=== PATIENT | female | born 1945 | race African-American/Black ===

== ENCOUNTER 2017-10-11 20:19 | Emergency (ER) | payer MEDICARE | END 2017-10-11 22:52 | disposition home or self-care (01) | LOC: D.ER 20:19 | DX: S93.402A Sprain of unspecified ligament of left ankle, initial encounter (principal); W01.0XXA Fall on same level from slipping, tripping and stumbling without subsequent striking against object, initial encounter; Y93.89 Activity, other specified; Y92.019 Unspecified place in single-family (private) house as the place of occurrence of the external cause; I10 Essential (primary) hypertension ==

== ENCOUNTER → 2017-10-28 09:47 | Outpatient (CLI) | payer MEDICARE, OTHER | END | disposition home or self-care (01) | LOC: D.MRI 09:47 | DX: M25.572 Pain in left ankle and joints of left foot (principal) ==

== ENCOUNTER 2020-04-11 15:00 | Outpatient (CLI) | payer MEDICARE, OTHER | END 2020-04-11 16:00 | disposition home or self-care (01) | LOC: D.MAMMO 15:00 | PROVIDERS: ATTEND Surgery | DX: N63.11 Unspecified lump in the right breast, upper outer quadrant (principal) ==

== ENCOUNTER → 2020-04-24 09:44 | Outpatient (CLI) | payer MEDICARE, OTHER | END | disposition home or self-care (01) | LOC: D.US 04-19 09:00 | PROVIDERS: ATTEND Surgery | DX: N63.11 Unspecified lump in the right breast, upper outer quadrant (principal) ==

== ENCOUNTER 2020-05-17 05:17 | Day surgery (SDC) | payer MEDICARE, OTHER ==
[~2020-05-17] VITALS: Ht 170.2 cm; Wt 59.1 kg
[~2020-05-17 05:17] MED LIST: AMBIEN5 MG PO; BENICAR40 MG PO; HYDROXYCHLOROQ200 MG PO; NORVASC10 MG PO; SALAGEN5 MG PO; vitamin d PO
[2020-05-17 06:08] LABS: ANION GAP 13.7 mmol/L (8-16); CALCIUM 8.4 mg/dL (8.5-10.1); CARBON DIOXIDE 23.8 mmol/L (21.0-32.0); CREATININE - SERUM 1.7 mg/dL (0.6-1.3); POTASSIUM - SERUM 4.5 mmol/L (3.5-5.1)
[2020-05-17 06:16] LABS: APTT 26.7 SECONDS (22.8-39.4); INR 1.03 (0.85-1.17); PROTIME 13.5 SECONDS (11.6-15.0)
[2020-05-17 06:55] VITALS: BP 152/83; BMI 20.4
[2020-05-17 06:59] LABS: HEMATOCRIT 24.9 % (36.0-48.0); HEMOGLOBIN 8.2 g/dL (12-16); LYMPHOCYTES 16.9 % (15-50); MCH 29.8 pg (26.0-34.0); MCHC 32.9 g/dL (31.0-37.0); MCV 90.5 fL (80.0-100.0); MEAN PLATELET VOLUME 8.4 fL (7.4-10.4); NEUTROPHILS 68.3 % (40-80); PLATELET COUNT 577 10x3/uL (130-400); RBC 2.75 10x6/uL (4.00-5.40); WBC 8.9 10x3/uL (4.8-10.8)
--- NOTE | 2020-05-17 08:35 | NUR ---
Patient scheduled for a Lymphoscintigrapy of the Right Breast. Consent was obtained. Patient arrived to the nuclear medicine room at 0800 and was positioned supine on the imaging table. Dr. Tracy entered the room and a time out was done at 0810. Regions of intrest were cleaned. 546uCi Tc-99m Tilmanocept (LymphProteros biostructures) was injected subcutaneously in the right breast at four different sites. Imaging followed.
[2020-05-17 12:29] VITALS: BP 144/75
[2020-05-17 16:01] VITALS: BP 124/61
[2020-05-17 16:05] VITALS: BP 125/71; Ht 170.2 cm; Wt 59.1 kg
[2020-05-17 17:38] VITALS: BP 114/69
[2020-05-17 20:00] VITALS: BP 136/77
--- NOTE | 2020-05-17 23:59 | NUR ---
PT RESTING IN BED. EYES CLOSED. NO SIGNS OF DISTRESS. BREATHING EVEN AND UNLABORED. IV SITE LT WRIST. DRESSING CLEAN DRY AND INTACT. NO SIGNS OF INFECTION OR INFULTRATION. LUNG SOUNDS CLEAR. DRESSING ON CHEST CLEAN DRY AND INTACT. SUNIL DAINS X2. BOWEL SOUNDS ACTIVE. SKIN CLEAN DRY AND INTACT. NO LOWER LEG SWELLING PRESENT. WILL CONTINUE PLAN OF CARE. CALL LIGHT IN REACH. BED LOWERED AND LOCKED. BED RAILS UPX1.
--- NOTE | 2020-05-18 03:56 | NUR ---
I have reviewed this patient and I concur with the Shift Assessment completed by the Licensed Practical Nurse today this shift.
[2020-05-18 04:00] VITALS: BP 139/74
[2020-05-18 05:36] LABS: ANION GAP 11.2 mmol/L (8-16); CALCIUM 7.9 mg/dL (8.5-10.1); CARBON DIOXIDE 23.8 mmol/L (21.0-32.0); CREATININE - SERUM 1.9 mg/dL (0.6-1.3)
[2020-05-18 07:52] LABS: HEMATOCRIT 21.5 % (36.0-48.0); LYMPHOCYTES 12.4 % (15-50); MCH 29.7 pg (26.0-34.0); MCHC 32.6 g/dL (31.0-37.0); MCV 91.1 fL (80.0-100.0); MEAN PLATELET VOLUME 8.5 fL (7.4-10.4); NEUTROPHILS 75.3 % (40-80); PLATELET COUNT 495 10x3/uL (130-400); RBC 2.36 10x6/uL (4.00-5.40); RDW 15.3 % (11.5-14.5); WBC 10.4 10x3/uL (4.8-10.8)
--- NOTE | 2020-05-18 09:07 | NUR ---
SHE IS SETTING UP ON THE SIDE OF BED. NO C/O PAIN. LUCILLE DRESSING AROUND HER BREAST AREA, 2 SUNIL'S ON THE RIGHT SIDE.
[2020-05-18 09:47] VITALS: BP 155/84
[2020-05-18] MEDS ORDERED: HYDROCODON-ACE1 EA10 PO (09:55)
--- NOTE | 2020-05-18 10:16 | NUR ---
taught her how to empty and record her cj drains.
--- NOTE | 2020-05-18 11:51 | OP ---
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 2. Hypertension. 3. Tobacco dependence syndrome. 4. Rheumatoid arthritis, on Plaquenil. 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 2. Hypertension. 3. Tobacco dependence syndrome. 4. Rheumatoid arthritis, on Plaquenil. PROCEDURE: 1. Right simple mastectomy. 2. Right axillary sentinel lymph node biopsy. SURGEON: Gordo Colin MD REPORT OF PROCEDURE: Preoperatively, the patient underwent lymphoscintigraphy which showed uptake in the patient's right axilla. The patient's right breast was then prepped and draped in sterile fashion. Due to the size of the mass and the fact that it was so closely adherent to the patient's skin in the right upper quadrant of the breast, lines were drawn out in an oblique ovoid fashion from the most lateral aspect of the pec down towards the inferior medial aspect of the breast. Using sharp dissection, this ovoid incision was made around the mass and the patient's nipple areolar complex. Electrocautery was used to dissect through the subcutaneous tissues. We then detached the breast from the overlying skin and subcutaneous fatty tissue. We continued this dissection up to the patient's clavicle, medially to the sternum, inferiorly towards the rectus musculature and laterally into the patient's axilla. Once this was freed up, then we removed the breast off of the patient's pec muscle including the pectoral fascia using electrocautery. Once the breast was completely removed, we can see that it was not adherent to the patient's pectoral breast tissue. The breast was marked appropriately and sent off for permanent specimen. The patient actually had 2 masses noted within the breast tissue, the most superior lateral mass was the largest mass and on the inferior medial aspect of the breast at about the 4 o'clock position, there was another mass about 3 cm in size. Both of these masses were incorporated in the breast at excision. We then inspected the patient's right axilla and using a Neoprobe, we were able to find an area of increased uptake. I opened up the axillary fascia and I was able to penetrate into a conglomerate of some lymph nodes. Couple of these appear to be enlarged. I went ahead and used electrocautery to come around these and as we elevated these lymph nodes through the wound, I was able to find the reading was about 2700. There was a total of 3 lymph nodes that were clumped together and these were all taken out in 1 piece. This was sent off for permanent specimen. I then inspected the remainder of the patient's axilla and there was some uptake in the level II and III lymph nodes, but none of these had a high enough reading to require any further dissection. We then irrigated out the wound with sterile water. A 10 flat SUNIL drains times 2 were placed through the inferior lateral aspect of the skin by the breast with the drains laid out OPERATIVE REPORT [id number] ARELY MARSH over top of the PEG musculature. These were sutured into place with 3-0 nylons. We inspected the area one last time to assure there was no sign of any bleeding and any that was found was treated with electrocautery or had been treated with silk ties. We then reapproximated the subcutaneous tissues with multiple interrupted 3-0 Vicryls and the skin was closed with alize. COMPLICATIONS: None. CONDITION: Stable. ANESTHESIA: General endotracheal and paravertebral block. BLOOD LOSS: 30 mL. TRANSINT:[id number] Voice Confirmation ID: [id number] DOCUMENT ID: [id number] GORDO COLIN MD at 1151 CC: KLEBER HUNTER APN [id number] DICTATION DATE: 05/17/20 1137 APRON WORKER: 05/17/20 1214 [facility] [address] [place] [address]
--- NOTE | 2020-05-18 11:59 | NUR ---
PAPERWORK HAS BEEN GONE OVER WITH, QUESTIONS ANSWERED. EDUCATED ABOUT THE SUNIL DRAINS, I AND O PAPER TO RECORD OUTPUT. STATES "SHE UNDERSTANDS" .
--- NOTE | 2020-05-18 12:40 | NUR ---
TAKEN DOWNSTAIRS VIA WHEELCHAIR TO THE FRONT DOOR.
== END 2020-05-18 12:45 | disposition home or self-care (01) ==
LOC: D.OPS 05:17 → D.PAN 07:30 → D.MS 11:51 → D.OPS 05-18 12:45
PROVIDERS: Anesthesiology; ATTEND Surgery
DX: C50.911 Malignant neoplasm of unspecified site of right female breast (principal); I10 Essential (primary) hypertension; F17.200 Nicotine dependence, unspecified, uncomplicated; M06.9 Rheumatoid arthritis, unspecified; N60.29 Fibroadenosis of unspecified breast

== ENCOUNTER 2021-03-09 18:16 | Inpatient (IN) | payer MEDICARE, OTHER ==
[~2021-03-09] VITALS: Ht 170.2 cm; Wt 63.5 kg
[~2021-03-09 18:16] MED LIST changes: +HYDROCODON-ACE1 EA10 PO
[2021-03-09] MEDS ORDERED: EFFEXOR50 MG PO (18:25)
[2021-03-09 18:52] VITALS: BP 158/81
[2021-03-09 19:09] LABS: BASOPHILS 0.2 % (0-2); EOSINOPHILS 2.7 % (0-7); HEMATOCRIT 30.8 % (36.0-48.0); HEMOGLOBIN 10.3 g/dL (12-16); IMMATURE GRANULOCYTES 0.2 % (0-5); LYMPHOCYTES 13.4 % (15-50); MCH 31.5 pg (26.0-34.0); MCHC 33.4 g/dL (31.0-37.0); MCV 94.2 fL (80.0-100.0); MEAN PLATELET VOLUME 9.6 fL (7.4-10.4); MONOCYTES 11.3 % (2-11); NEUTROPHIL ABS# 5.92 10x3/uL (1.56-6.13); NEUTROPHILS 72.2 % (40-80); RBC 3.27 10x6/uL (4.00-5.40); WBC 8.2 10x3/uL (4.8-10.8)
[2021-03-09 19:19] LABS: PLATELET COUNT 367 10x3/uL (130-400)
[2021-03-09 19:21] LABS: CALC OSMOLALITY 270 mosm/kg (275-300); CALCIUM 8.5 mg/dL (8.5-10.1); CARBON DIOXIDE 20.6 mmol/L (21.0-32.0); CHLORIDE - SERUM 94 mmol/L (98-107); CREATININE - SERUM 2.5 mg/dL (0.6-1.3); GLUCOSE 114 mg/dL (74-106); INR 1.19 (0.85-1.17); POTASSIUM - SERUM 4.2 mmol/L (3.5-5.1); SODIUM 130 mmol/L (136-145); UREA NITROGEN 39 mg/dL (7-18); eGFR NON AFRICAN AMERICAN 20 mL/min (90-120)
[2021-03-09 19:34] LABS: D-DIMER-QUANTITATIVE 5.07 ug/mLFEU (0.20-0.54)
[2021-03-09 19:38] LABS: ALBUMIN 3.1 g/dL (3.4-5.0); ALKALINE PHOSPHATASE 102 U/L (30-120); ALT (SGPT) 14 U/L (10-68); AMYLASE - SERUM 157 U/L (25-115); BILIRUBIN - TOTAL 0.27 mg/dL (0.2-1.3); CKMB 0.6 U/L (0.0-3.6); CREATINE KINASE 40 UL (21-215); LIPASE 111 U/L (73-393); MAGNESIUM - SERUM 2.1 mg/dL (1.8-2.4); PRO BNP 201 pg/mL (0-125); PROTEIN - SERUM 7.6 g/dL (6.4-8.2)
[2021-03-09 19:41] LABS: TROPONIN-I < 0.017 ng/mL (0.000-0.060)
[2021-03-09 21:38] VITALS: BP 145/83
--- NOTE | 2021-03-09 21:41 | NUR ---
REPORT EVITA BUNN AT THIS TIME WITH VERBAL ACKNOWLEGEMENT OBTAINED.
--- NOTE | 2021-03-09 21:50 | NUR ---
RECEIVED FROM ER VIA WHEELCHAIR. ALERT.ORIENTED.NO DISTRESS NOTED. IV TO RANDY INTACT WIHTOUT REDNESS OR EDEMA NOTED. ORIENTED TO ROOM. CL IN REACH
[2021-03-09] MEDS ORDERED: ZANAFLEX2 M1 PO (22:04)
[2021-03-09 22:21] VITALS: BP 150/87; BMI 21.9
[2021-03-10 07:52] LABS: BASOPHILS 0.1 % (0-2); EOSINOPHILS 5.2 % (0-7); HEMATOCRIT 27.4 % (36.0-48.0); HEMOGLOBIN 9.2 g/dL (12-16); IMMATURE GRANULOCYTES 0.4 % (0-5); LYMPHOCYTE ABS# 1.09 10x3/uL (1.18-3.74); LYMPHOCYTES 14.9 % (15-50); MCH 31.2 pg (26.0-34.0); MCHC 33.6 g/dL (31.0-37.0); MCV 92.9 fL (80.0-100.0); MEAN PLATELET VOLUME 9.5 fL (7.4-10.4); MONOCYTES 14.2 % (2-11); NEUTROPHIL ABS# 4.77 10x3/uL (1.56-6.13); NEUTROPHILS 65.2 % (40-80); PLATELET COUNT 376 10x3/uL (130-400); RBC 2.95 10x6/uL (4.00-5.40); RDW 12.9 % (11.5-14.5); WBC 7.3 10x3/uL (4.8-10.8)
[2021-03-10 08:07] LABS: ALBUMIN 2.7 g/dL (3.4-5.0); BILIRUBIN - TOTAL 0.1 mg/dL (0.2-1.3); CARBON DIOXIDE 19.9 mmol/L (21.0-32.0); PROTEIN - SERUM 6.4 g/dL (6.4-8.2)
[2021-03-10 08:09] LABS: POTASSIUM - SERUM 4.9 mmol/L (3.5-5.1)
[2021-03-10 08:14] VITALS: BP 119/68
--- NOTE | 2021-03-10 09:54 | NUR ---
RESTING IN BED, NO DISTRESS NOTED, IV STARTED THIS AM TO YEFRI RA, CONT TO MONITOR
[2021-03-10 13:42] VITALS: BP 123/69
[2021-03-10 13:45] LABS: LDH 239 U/L (81-234)
[2021-03-10 16:35] VITALS: BP 132/75
--- NOTE | 2021-03-11 08:01 | NUR ---
RADIOLOGY CALLED MADE PT NPO, STATED THEY WOULD BE DOWN SOON TO GET PT, CONSENTS SIGNED, PT AOX4, NO SIGNS OF DISTRESS
[2021-03-11 08:51] LABS: BASOPHILS 0.1 % (0-2); EOSINOPHILS 0.2 % (0-7); HEMATOCRIT 24.6 % (36.0-48.0); HEMOGLOBIN 8.4 g/dL (12-16); IMMATURE GRANULOCYTES 0.3 % (0-5); LYMPHOCYTE ABS# 0.94 10x3/uL (1.18-3.74); MCH 31.8 pg (26.0-34.0); MCHC 34.1 g/dL (31.0-37.0); MCV 93.2 fL (80.0-100.0); MONOCYTES 14.6 % (2-11); NEUTROPHIL ABS# 7.04 10x3/uL (1.56-6.13); NEUTROPHILS 74.8 % (40-80); PLATELET COUNT 376 10x3/uL (130-400); RBC 2.64 10x6/uL (4.00-5.40); WBC 9.4 10x3/uL (4.8-10.8)
[2021-03-11 09:01] LABS: ANION GAP 16.8 mmol/L (8-16); APTT 35.3 SECONDS (22.8-39.4); CALCIUM 8.5 mg/dL (8.5-10.1); CARBON DIOXIDE 18.7 mmol/L (21.0-32.0); CREATININE - SERUM 2.1 mg/dL (0.6-1.3); INR 1.25 (0.85-1.17); POTASSIUM - SERUM 4.5 mmol/L (3.5-5.1); PROTIME 14.5 SECONDS (11.6-15.0)
[2021-03-11 10:02] VITALS: BP 128/67
[2021-03-11 10:27] VITALS: Ht 170.2 cm; Wt 63.5 kg
[2021-03-11 14:07] VITALS: BP 136/75
[2021-03-11 15:51] LABS: PROTEIN - BODY FLUID 4.9 G/DL
[2021-03-11 18:59] VITALS: BP 110/61
[2021-03-11 20:00] VITALS: BP 133/94
--- NOTE | 2021-03-12 02:15 | NUR ---
I have reviewed this patient and I concur with the Shift Assessment completed by the Licensed Practical Nurse today this shift.
[2021-03-12 04:00] VITALS: BP 138/71
--- NOTE | 2021-03-12 07:30 | NUR ---
REC'D IN BED AWAKE AND ALERT. RESP IS SHALLOW BUT GET LABORED WITH EXTERTION. DENIES ANY PAIN OR DISCOMFORT AT THIS TIME. UP AB JAMES TO BATHROOM. CAN VOICE NEEDS AND WANTS. NO C/O NOTED OR VOICECD. ASSESSMENT COMPLETED. C/L IN REACH AT BEDSIDE.
[2021-03-12 08:50] VITALS: BP 133/70
[2021-03-12 11:07] LABS: % SATURATION 5 % (15-55); IRON 9 ug/dl (35-150); TOTAL IRON BIND CAPACITY 159 ug/dl (260-445); UNSAT IRON BIND CAPACITY 150 ug/dl (150-375)
[2021-03-12 12:11] LABS: CA 27-29 27.8 U/mL (0.0-38.6)
[2021-03-12 14:48] VITALS: BP 142/69
[2021-03-12 17:51] VITALS: BP 149/77
[2021-03-12 20:00] VITALS: BP 174/84
--- NOTE | 2021-03-12 20:00 | NUR ---
PT SITTING UP IN BED WITHOUT DISTRESS, AOX4. REQUESTED AND GIVEN NORCO FOR PAIN. STATES SHE DOES NOT HURT TOO MUCH WHILE LYING DOWN BUT IS 8/10 WHILE AMBULATING. PT DID NOT EAT DINNER TRAY. STATES SHE DID NOT EAT MUCH AT ALL TODAY AND HAS NOT HAD MUCH OF AN APPETITE. IV LEFT FA INFUSING NS @ 75. SCDS ON BILAT. PT USING INCENTIVE SPIROMETER. DENIES OTHER NEEDS AT THIS TIME. CL IN REACH
[2021-03-13] VITALS: BP 119/70
[2021-03-13 04:00] VITALS: BP 167/79
--- NOTE | 2021-03-13 04:06 | NUR ---
IV INFILTRATED TO LEFT FA. REMOVED WITH CATH INTACT. X3 ATTEMPTS TO SITE NEW IV, UNSUCCESSFUL. ICU NURSE TO COME OVER AND ATTEMPT
--- NOTE | 2021-03-13 05:22 | NUR ---
X2 ICU NURSES ATTEMPTED TO SITE NEW IV, UNSUCCESSFUL. PT ASKING TO TAKE A BREAK FROM BEING STUCK AND WAIT UNTIL LATER TO TRY AGAIN.
--- NOTE | 2021-03-13 07:15 | NUR ---
REC'D IN WITH EYES CLOSED EASILY TO AROUSED WHEN NAME IS CALLED. RESP EVEN AND UNLABORED WITH NO DISTRESS NOTED OR VOICED. NO C/O NOTED OR VOICED. ASSESSMENT COMPLETED. C/L IN REACH AT BEDSIDE.
[2021-03-13 10:11] VITALS: BP 135/66
--- NOTE | 2021-03-13 11:27 | NUR ---
PATIENT IN BED, DENIES NEEDS. FREE FROM SIGNS OF DISTRESS. BED LOW POSITION, CALL LIGHT IN REACH. WILL CONTINUE TO MONITOR.
--- NOTE | 2021-03-13 11:46 | NUR ---
CALL WAS PLACED TO FISH DRESSING MACHINE FEEDER MD FOR DR. CARTAGENA ABOUT PT NOT HAVING ANY IV ACCESS AND HAD ALREADY BEEN STUCK SEVERAL TIMES. WAS INSTRUCTED TO CALL DR. MARTINEZ FOR ANY NEW ORDERS. DR. MARTINEZ WAS CALLED AND REC'D NEW ORDERS FOR DOXYCYCLINE 100MG BID ORALLY.
[2021-03-13 14:48] VITALS: BP 134/69
[2021-03-13 20:00] VITALS: BP 159/81
--- NOTE | 2021-03-13 23:23 | NUR ---
PT RESTING IN BED. COMPLAINED OF SOME BACK PAIN. PAIN MEDICATION WAS AND EFFECTIVE. ABLE TO MAKE TO WANTS AND NEEDS KNOWN TO STAFF. ALERT AND ORIENTED. BED IN LOWEST POSITION WITH CALL LIGHT IN REACH.
[2021-03-14] VITALS (9 sets, daily range): BP systolic 99–170; BP diastolic 49–84
[2021-03-14 06:59] LABS: APTT 31.7 SECONDS (22.8-39.4); INR 1.19 (0.85-1.17)
[2021-03-14 07:06] LABS: BASOPHILS 0.1 % (0-2); EOSINOPHILS 0.6 % (0-7); HEMATOCRIT 23.7 % (36.0-48.0); IMMATURE GRANULOCYTES 0.3 % (0-5); LYMPHOCYTE ABS# 0.75 10x3/uL (1.18-3.74); MCH 31.3 pg (26.0-34.0); MCHC 33.8 g/dL (31.0-37.0); MCV 92.6 fL (80.0-100.0); MONOCYTES 15.7 % (2-11); NEUTROPHIL ABS# 8.24 10x3/uL (1.56-6.13); NEUTROPHILS 76.3 % (40-80); RBC 2.56 10x6/uL (4.00-5.40); RDW 13.3 % (11.5-14.5); WBC 10.8 10x3/uL (4.8-10.8)
[2021-03-14 07:10] LABS: PLATELET COUNT 534 10x3/uL (130-400)
[2021-03-14 08:33] LABS: ANION GAP 18.8 mmol/L (8-16); CALCIUM 8.8 mg/dL (8.5-10.1); CARBON DIOXIDE 17.1 mmol/L (21.0-32.0); CREATININE - SERUM 1.6 mg/dL (0.6-1.3); POTASSIUM - SERUM 4.9 mmol/L (3.5-5.1)
--- NOTE | 2021-03-14 12:11 | NUR ---
Nutrition follow-up: Pt currently NPO for lung biopsy today PO intake of low sodium diet has been poor Labs reviewed; renal function slowly improving Wt: 140# No Bm recorded since admission Recommend: Stool softener RDN will monitor patients progress toward nutrition goals: 03/18/21
--- NOTE | 2021-03-14 12:50 | NUR ---
RADIOLOGY HERE FOR PROCEDURE. TO XRAY PER BED
--- NOTE | 2021-03-14 14:02 | NUR ---
RETURNED FROM XRAY PER BED. DRESSING NOTED TO RIGHT BACK WITHOUT DRAINAGE OR BLEEDING NOTED. VS 112/75 116 18 89%RA. OXYGEN AT 2L PER NC APPLIED AND SAT INCREASED TO 95%. FAMILY AT BEDSIDE.
[2021-03-14 16:09] LABS: BETA-2 MICROGLOBULIN 7.1 mg/L (0.6-2.4)
--- NOTE | 2021-03-14 18:06 | NUR ---
PT REMAINS WITHOUT SOB AFTER PROCEDURE. DRESSING REMAINS CLEAN DRY AND INTACT. REMAINS ON OXYEN AT PRESENT. NO COMPLAINTS AT PRESENT. CALL LIGHT IN REACH
--- NOTE | 2021-03-14 23:46 | NUR ---
PT IN BED WATCHING TELEVISION. WENT FOR LUNG BIOPSY TODAY, DRESSING STILL IN PLACE. ALERT AND ORIENTED. ABLE TO MAKE WANTS AND NEEDS KNOWN TO STAFF. CURRENTLY ON O2 AT 2L VIA NASAL CANNULA. BED IN LOW POSITION WITH CALL LIGHT IN REACH.
[2021-03-15] VITALS: BP 103/57
[2021-03-15 04:00] VITALS: BP 121/76
--- NOTE | 2021-03-15 08:27 | NUR ---
AWAKE AND ALERT. ORIENTED X3. NO C/O AT THIS TIME. LUNGS ARE CLEAR BILATERALLY, BUT DIMINISHED THROUGHOUT, NO COUGH NOTED. SKIN IS INTACT WITHOUT REDNESS EXCEPT INSERTION TO RIGHT UPPER BACK FROM BIOPSY YESTERDAY. IV TO LEFT HAND IS PATENT WITHOUT REDNESS AT INSERTION SITE. DENIES NEEDS. O2 SAT AT 96% ON 1L. O2 OFF AT THIS TIME. WILL MONITOR.
[2021-03-15 08:52] VITALS: BP 145/75
--- NOTE | 2021-03-15 09:00 | NUR ---
ATE MOST OF BREAKFAST. TOOK AM MEDS WITHOUT DIFFICULTY. WANTS MUCINEX. WILL ASK .
[2021-03-15 12:29] VITALS: BP 141/79
--- NOTE | 2021-03-15 12:30 | NUR ---
LUNCH SERVED IN ROOM. FEEDS SELF.
--- NOTE | 2021-03-15 15:24 | NUR ---
UP TO SHOWER WITH SET UP ASSIST. VISITOR AT BEDSIDE,
--- NOTE | 2021-03-15 15:37 | NUR ---
OT NOTE: PT COMPLETED SUPINE TO SIT WITH SBA. PT COMPLETED EOB SITTING WITH SBA. PT COMPLETED ANTHONY UB DRESSSING WITH CGA. PT COMPLETED ADL MOB WITH CGA. PT REQUIRED REST BREAKS. [phone] RAIZA GALARZA COTA
[2021-03-15 17:12] VITALS: BP 154/79
--- NOTE | 2021-03-15 18:28 | NUR ---
DINNER TRAY STILL IN ROOM. DENIES NEEDS. NO CHANGES NOTED.
[2021-03-15 20:00] VITALS: BP 154/97
[2021-03-16 05:48] VITALS: BP 154/97
[2021-03-16 05:54] VITALS: BP 126/89
--- NOTE | 2021-03-16 07:32 | NUR ---
REC'D SITTING ON SIDE OF BED AWAKE AND ALERT. RESP EVEN AND UNLABORED WITH NO DISTRESS. CAN EXPRESS NEEDS AND WANTS. NO C/O NOTED OR VOICED. DENIES ANY PAIN OR DISCOMFORT AT THIS TIME. ASSESSMENT COMPLETED. C/L IN REACH AT BEDSIDE.
[2021-03-16 08:27] VITALS: BP 135/77
[2021-03-16 12:43] VITALS: BP 133/72
--- NOTE | 2021-03-16 17:22 | NUR ---
I have reviewed this patient and I concur with the Shift Assessment completed by the Licensed Practical Nurse today this shift.
[2021-03-16 17:23] VITALS: BP 141/78
[2021-03-16 20:00] VITALS: BP 155/79
--- NOTE | 2021-03-16 23:26 | NUR ---
22 G IV RESITED TO LEFT FOREARM BY TESSY MARKHAM. BREANNA VENOFER IRON INFUSION. NO OTHER NEEDS. WILL CONTINUE TO MONITOR.
[2021-03-17 07:00] VITALS: BP 137/69
[2021-03-17 12:24] LABS: HEMATOCRIT 21.8 % (36.0-48.0); MCH 31.1 pg (26.0-34.0); MCHC 33.9 g/dL (31.0-37.0); MCV 91.6 fL (80.0-100.0); MEAN PLATELET VOLUME 8.7 fL (7.4-10.4); PLATELET COUNT 601 10x3/uL (130-400); RBC 2.38 10x6/uL (4.00-5.40); RDW 13.7 % (11.5-14.5)
[2021-03-17 12:25] LABS: HEMOGLOBIN 7.4 g/dL (12-16)
[2021-03-17 12:44] LABS: BASOPHILS 1 % (0-2); EOSINOPHILS 2 % (0-7); LYMPHOCYTES 12 % (15-50); MONOCYTES 9 % (2-11); NEUTROPHILS 74 % (40-80); PLATELET ESTIMATE INCREASED
[2021-03-17 12:45] LABS: POIKILOCYTOSIS OCC; POLYCHROMASIA OCC; SCHISTOCYTES OCC
[2021-03-17 15:07] VITALS: BP 143/67
--- NOTE | 2021-03-17 16:34 | NUR ---
PATIENT FIRST UNIT OF BLOOD INFUSING. IV INTACT. NO COMPLAINTS OR SIGNS OF DISTRESS. VS STABE. CALL LIGHT WITHIN REACH.
--- NOTE | 2021-03-17 19:49 | NUR ---
FIRST UNIT OF BLOOD COMPLETE. IV INTACT. VS STABLE. ASSISTED PATIENT TO BR TO WASH UP AND USE THE RESTROOM. STATED SHE WOULD CALL WHEN SHE IS READY TO GET THE SECOND UNIT STARTED AFTER. CALL LIGHT WITHIN REACH.
[2021-03-17 23:00] VITALS: BP 108/66
[2021-03-17 23:15] VITALS: BP 105/64
[2021-03-18] VITALS: BP 116/66
[2021-03-18 06:50] LABS: BASOPHILS 0.1 % (0-2); EOSINOPHILS 0.6 % (0-7); IMMATURE GRANULOCYTES 0.6 % (0-5); LYMPHOCYTE ABS# 0.78 10x3/uL (1.18-3.74); LYMPHOCYTES 8.4 % (15-50); MCH 30.4 pg (26.0-34.0); MCHC 34.3 g/dL (31.0-37.0); MEAN PLATELET VOLUME 8.7 fL (7.4-10.4); MONOCYTES 16.6 % (2-11); NEUTROPHIL ABS# 6.85 10x3/uL (1.56-6.13); NEUTROPHILS 73.7 % (40-80); PLATELET COUNT 539 10x3/uL (130-400); RDW 15.6 % (11.5-14.5); WBC 9.3 10x3/uL (4.8-10.8)
[2021-03-18 06:56] LABS: HEMATOCRIT 29.7 % (36.0-48.0); HEMOGLOBIN 10.2 g/dL (12-16); MCV 88.4 fL (80.0-100.0); RBC 3.36 10x6/uL (4.00-5.40)
[2021-03-18 10:18] VITALS: BP 148/82
--- NOTE | 2021-03-18 13:33 | NUR ---
Nutrition reassessment: Diet order: Regular PO intake of regular diet has been 25-100% of some meals; pt is also receiving Ensure with meals Labs reviewed Wt: 140# Estimated needs remain the same as initial assessment from 03/11/21. Nutrition diagnosis: Inadequate oral intake R/T scheduled procedures with NPO orders AEB pt with < 75% average intake at meals. Nutrition goals: - PO intake will increase to =/> 75% of meals, snacks - Meet est fluid needs - stable wt Nutrition interventions: Will continue to provide food choices with selective menus; provide Ensure with meals. Recommend if po intake remains < 75% of meals, add an appetite stimulant. RDN follow-up: 03/21/21
--- NOTE | 2021-03-18 13:38 | NUR ---
UP WITH PT. AMBULATES 150 FEET. TOLERATED WELL.
[2021-03-18 14:00] VITALS: BP 137/76
--- NOTE | 2021-03-18 16:18 | NUR ---
OT NOTE: PT COMPLETED SUPINE TO SIT WITH SPV. PT COMPLETED ANTHONY SHOES WITH SPV. PT COMPLETED ADL MOB WITH SBA-CGA. PT COMPLETED TOILETING WITH SPV FOR HYGIENE AND CLOTHING MANAGEMENT. [phone] RAIZA GALARZA COTA
[2021-03-18 17:54] VITALS: BP 157/81
[2021-03-18 20:00] VITALS: BP 154/87
--- NOTE | 2021-03-18 20:00 | NUR ---
ALERT RESTING IN BED DENIES PAIN OR NEEDS AT THIS TIME, SEE SHIFT ASSESSMENT, CALL LIGHT IN REACH
[2021-03-19] VITALS: BP 168/96
[2021-03-19 04:00] VITALS: BP 142/72
[2021-03-19 10:02] VITALS: BP 145/86
[2021-03-19] MEDS ORDERED: VIBRAMYCIN 100100 MG PO (14:16)
[2021-03-19] MEDS ORDERED: ALBUTEROL SULF8.5 GM INH (14:18)
[2021-03-19 14:48] VITALS: BP 144/85
--- NOTE | 2021-03-19 15:39 | NUR ---
OT NOTE: PT COMPLETED SUPINE TO SIT WITH SPV. PT COMPLETED ADL MOB TO TOILET WITH SPV. PT COMPLETED TOILET HYGIENE WITH SPV. PT COMPLETED FACE AND HAND HYGIENE WITH SETUP. PT COMPLETED SIT TO STANDS FOR INCREASED AX TOLERANCE. PT COMPLETED BUE AROM EXS TOLERATED AT EOB WITH SPV. PT COMPLETED ANTHONY/DOFF SOCKS AT EOB WITH SPV. [phone] THANK YOU,KATELYN ELLIS
--- NOTE | 2021-03-19 19:30 | NUR ---
PT ESCORTED TO ER ENTRANCE VIA WHEELCHAIR.
[2021-03-19 20:00] VITALS: BP 122/73
--- NOTE | 2021-03-20 08:44 | MORECARE ---
CASE MANAGEMENT DISCHARGE SUMMARY PATIENT: ARELY MARSH UNIT: [id number] ADM DATE: 03/09/21 AGE: 75 : 46 SEX: F ROOM/BED: D.2204 AUTHOR: REMI,DOC PHYSICIAN: REFERRING PHYSICIAN: ADILENE CARTAGENA MD DATE OF SERVICE: 03/20/21 Case Management Discharge Planning Summary COMMENTS ENTERED DATE: 03/19/21 15:30 CT COMMENT TYPE: Discharge Planning REVIEWER: Shira Corrales CM met with patient to complete initial dc planning assessment. CM educated patient on the CM role and verbal consent given by patient to complete assessment. Patient lives at home with by herself where she is independent with her care. She has her car here at the hospital and wants to drive it home and states she feels safe to drive it home. Her friend from [place] is here and will be staying with her for a couple of days. At discharge patient plans to return home and feels this is a safe discharge. CM discussed availability of home health, rehab services, and medical equipment at length & initially she didn't want home health, but after Dr Cartagena spoke with her she is open for home health to hear what their services are. JHONNY signed for [facility], nursing, med box, and the fall band. [facility] will deliver her a walker to her home tomorrow & a shower chair. IMM served and explained. She has 2 cane's at home. Patient denied known discharge needs at this time. CM will continue to follow and will assist as needed with dc plans/needs. DCP REVIEW SUMMARY ANTICIPATED D/C DATE: EXPECTED LOS : 0 CASE STATUS: DCP Complete INITIAL REVIEW: 03/09/2021 INITIAL REVIEWER: Shira Corrales FINAL DISCHARGE DISPOSITION: 06 : Discharged/Trans to Home Under Care of Organized Home Health Service in Anticipation of Skilled Care FINAL REVIEWER: Shira Corrales FINAL REVIEW DATE: 03/20/2021 DCP Focus Questions & Answers QUESTION: ANSWER : PATIENT: ARELY MARSH ENCOUNTER: [id number] MEDICAL RECORD#: [id number] ADMISSION DATE: 03/09/2021 DISCHARGE DATE: 03/19/2021 ATTENDING MD: ADILENE BAER : AGE: 75 MARITAL STATUS: S DC PLAN ID: [id number] FACILITY: [facility] PRINTED ON: 03/20/21 8:44 CT All edits/amendments must be made on the electronic document DICTATION DATE: 03/20/21843 SQUIRREL MAN: HAN 03/20/2144 RPT#: [id number] DC DATE:03/19/21 STATUS: DIS IN [facility] [address] [place] [address] END OF REPORT
--- NOTE | 2021-03-21 12:10 | MORECARE ---
CASE MANAGEMENT DISCHARGE SUMMARY PATIENT: ARELY MARSH UNIT: [id number] ADM DATE: 03/09/21 AGE: 75 : 46 SEX: F ROOM/BED: D.2204 AUTHOR: REMI,DOC PHYSICIAN: REFERRING PHYSICIAN: ADILENE CARTAGENA MD DATE OF SERVICE: 03/21/21 Case Management Discharge Planning Summary COMMENTS ENTERED DATE: 03/19/21 15:30 CT COMMENT TYPE: Discharge Planning REVIEWER: Shira Corrales CM met with patient to complete initial dc planning assessment. CM educated patient on the CM role and verbal consent given by patient to complete assessment. Patient lives at home with by herself where she is independent with her care. She has her car here at the hospital and wants to drive it home and states she feels safe to drive it home. Her friend from [place] is here and will be staying with her for a couple of days. At discharge patient plans to return home and feels this is a safe discharge. CM discussed availability of home health, rehab services, and medical equipment at length & initially she didn't want home health, but after Dr Cartagena spoke with her she is open for home health to hear what their services are. JHONNY signed for [facility], nursing, med box, and the fall band. [facility] will deliver her a walker to her home tomorrow & a shower chair. IMM served and explained. She has 2 cane's at home. Patient denied known discharge needs at this time. CM will continue to follow and will assist as needed with dc plans/needs. DCP REVIEW SUMMARY ANTICIPATED D/C DATE: EXPECTED LOS : 0 CASE STATUS: DCP Complete INITIAL REVIEW: 03/09/2021 INITIAL REVIEWER: Shira Corrales FINAL DISCHARGE DISPOSITION: 06 : Discharged/Trans to Home Under Care of Organized Home Health Service in Anticipation of Skilled Care FINAL REVIEWER: Shira Corrales FINAL REVIEW DATE: 03/20/2021 DCP Focus Questions & Answers QUESTION: ANSWER : PATIENT: ARELY MARSH ENCOUNTER: [id number] MEDICAL RECORD#: [id number] ADMISSION DATE: 03/09/2021 DISCHARGE DATE: 03/19/2021 ATTENDING MD: ADILENE BAER : AGE: 75 MARITAL STATUS: S DC PLAN ID: [id number] FACILITY: [facility] PRINTED ON: 03/21/21 12:10 CT All edits/amendments must be made on the electronic document DICTATION DATE: 03/21/211209 SORT LINE: HAN 03/21/211209 RPT#: [id number] DC DATE:03/19/21 STATUS: DIS IN [facility] [address] [place] [address] END OF REPORT
== END 2021-03-19 21:59 | disposition home health service (06) | DRG 181 ==
LOC: D.ER 18:16 → D.MS 21:00
PROVIDERS: Family Medicine; General Practice; Internal Medicine Hematology & Oncology; Internal Medicine Pulmonary Disease; Radiology Vascular & Interventional Radiology; Student in an Organized Health Care Education/Training Program; ADMIT Family Medicine; ATTEND Family Medicine
PROC: 0W9B3ZZ Drainage of Left Pleural Cavity, Percutaneous Approach (ICD-10-PCS; principal; 2021-03-11 13:30)
PROC: 0BBF3ZX Excision of Right Lower Lung Lobe, Percutaneous Approach, Diagnostic (ICD-10-PCS; 2021-03-14)
DX: C78.00 Secondary malignant neoplasm of unspecified lung (principal); J90 Pleural effusion, not elsewhere classified; F17.200 Nicotine dependence, unspecified, uncomplicated; J44.9 Chronic obstructive pulmonary disease, unspecified; K59.00 Constipation, unspecified; R91.8 Other nonspecific abnormal finding of lung field; R73.9 Hyperglycemia, unspecified; I12.9 Hypertensive chronic kidney disease with stage 1 through stage 4 chronic kidney disease, or unspecified chronic kidney disease; N18.9 Chronic kidney disease, unspecified; Z85.3 Personal history of malignant neoplasm of breast; R53.81 Other malaise; D64.9 Anemia, unspecified